=== PATIENT | female | born 1965 | race Caucasian/White ===

== ENCOUNTER → 2022-02-20 | Outpatient (CLI) | payer BC, OTHER | LOC: M PLARAD 10:06 | PROVIDERS: ATTEND Student in an Organized Health Care Education/Training Program | DX: R91.8 Other nonspecific abnormal finding of lung field (principal); K44.9 Diaphragmatic hernia without obstruction or gangrene | CPT/HCPCS: 78815; A9552 ==

== ENCOUNTER 2023-05-30 11:02 | Inpatient (IN) | payer BC, OTHER ==
[~2023-05-30] VITALS: Ht 162.6 cm; Wt 71.2 kg
[2023-05-30] MEDS ORDERED: OMEP40CA4 PO (11:35)
[2023-05-30] MEDS ORDERED: ESTR1TAB PO (11:35)
[2023-05-30] MEDS: NS 1,000 ML IV SCH ×2 (13:45→19:27)
[2023-05-30 13:58] LABS: BASO % 0.3 % (0.0-1.0); EOS % 0.3 % (0.0-3.0); HEMATOCRIT 39.6 % (36.0-47.0); HEMOGLOBIN 13.7 g/dl (12.0-15.5); LYMPH # 1.1 10^3/uL (1.5-5.0); LYMPH % 14.3 % (24.0-44.0); MEAN CORPUSCULAR HEMOGLOBIN 29.7 pg (27.0-33.0); MEAN CORPUSCULAR HGB CONC 34.6 g/dl (32.0-36.5); MEAN CORPUSCULAR VOLUME 85.9 fl (80.0-96.0); MONO # 0.6 10^3/uL (0.0-0.8); NEUTROPHILS # 6.2 10^3/uL (1.5-8.5); NEUTROPHILS % 77.6 % (36.0-66.0); PLATELET COUNT, AUTOMATED 202 10^3/uL (150-450); RED BLOOD COUNT 4.61 10^6/uL (4.00-5.40)
[2023-05-30] MEDS ORDERED: ISOVUE-370 76% 100ML VIAL As Ordered ONE (14:06)
[2023-05-30] MEDS ORDERED: IBUP1TAB7 PO (14:06)
[2023-05-30] MEDS ORDERED: D 101000 PO (14:06)
[2023-05-30] MEDS ORDERED: VITA100C15 PO (14:06)
[2023-05-30] MEDS ORDERED: METH4PACK PO (14:06)
[2023-05-30] MEDS ORDERED: MAGICMW SS (14:06)
[2023-05-30] MEDS ORDERED: TRAZ-252 PO (14:06)
[2023-05-30] MEDS ORDERED: OMEP-173 PO (14:06)
[2023-05-30] MEDS ORDERED: AMOX875T2 PO ×2 (14:06→19:27)
[2023-05-30] MEDS ORDERED: HOME MED LIST COMPLETE! XX SCH (14:10)
[2023-05-30 14:30] LABS: BLOOD UREA NITROGEN 13 MG/DL (9-23); CALCIUM LEVEL 8.5 MG/DL (8.5-10.1); CARBON DIOXIDE LEVEL 27 MMOL/L (20-31); CHLORIDE LEVEL 106 MMOL/L (98-107); CREATININE FOR GFR 0.62 MG/DL (0.55-1.30); GLOMERULAR FILTRATION RATE > 60.0 (>51); GLUCOSE, FASTING 87 MG/DL (60-100); POTASSIUM SERUM 3.7 MMOL/L (3.5-5.1); SODIUM LEVEL 139 MMOL/L (136-145)
[2023-05-30] MEDS: AMPICILLIN SOD/SULBACTAM SOD 3 GM in D5W MINI-BAG PLUS 100 ML IV ONE (15:43)
[2023-05-30] MEDS ORDERED: dexAMETHasone 20MG/5ML VIAL IV ONE (16:00)
[2023-05-30] MEDS ORDERED: KETOROLAC 30 MG/ML 1ML VIAL IV PRN (16:05)
[2023-05-30] MEDS ORDERED: traZODone 50 MG TAB PO PRN (16:05)
[2023-05-30] MEDS ORDERED: OXYMETAZOLINE 0.05% NASAL SPRAY (AFRIN) As Ordered ONE (16:28)
[2023-05-30] MEDS: SCOPOLAMINE 1MG TRANSDERMAL PATCH TOP ONE (16:30)
[2023-05-30] MEDS ORDERED: fentaNYL 100 MCG/2 ML INJECTION As Ordered ONE (16:35)
[2023-05-30] MEDS ORDERED: MIDAZOLAM INJ 2MG/2ML VIAL As Ordered ONE (16:35)
[2023-05-30] MEDS ORDERED: SUCCINYLCHOLINE 100MG/5ML SYRINGE As Ordered ONE (16:35)
[2023-05-30] MEDS ORDERED: propofoL 200 MG/20 ML VIAL As Ordered ONE (16:35)
[2023-05-30] MEDS ORDERED: LIDOCAINE 2% 100MG/5ML SDV (FOR ANES.) As Ordered ONE (16:36)
[2023-05-30] MEDS ORDERED: ONDANSETRON 4MG 2ML VIAL As Ordered ONE (16:36)
[2023-05-30 17:03] LABS: RSV AMPLIFICATION NEGATIVE (NEGATIVE)
[2023-05-30] MEDS: LIDOCAINE W/EPINEPHRINE 1% 20ML VIAL As Ordered ONE (17:28)
[2023-05-30] MEDS: LR 1,000 ML IV SCH (17:45)
[2023-05-30] MEDS ORDERED: fentaNYL 100 MCG/2 ML INJECTION IV PRN (17:45)
[2023-05-30] MEDS ORDERED: NORCO, ANEXSIA 5/325MG TABLET (HYDROcodone/ACETAMINOPHEN) PO PRN (17:45)
[2023-05-30] MEDS ORDERED: ONDANSETRON 4MG 2ML VIAL IV PRN (17:45)
[2023-05-30] MEDS ORDERED: MEPERIDINE 25 MG/ML 1ML VIAL IV PRN (17:45)
[2023-05-30] MEDS ORDERED: HYDROMORPHONE HCL 0.5 MG/ 0.5 ML SYRINGE IV PRN (17:45)
[2023-05-30 18:15] VITALS: BP 138/80; TEMP 98.7; O2SAT 100
[2023-05-30] MEDS: KETOROLAC 30 MG/ML 1ML VIAL IV ONE (18:27)
[2023-05-30] MEDS: NS 1,000 ML IV ONE (18:28)
[2023-05-30 19:38] VITALS: BP 127/70; TEMP 98.3; O2SAT 97
[2023-05-30 20:33] VITALS: BP 124/75; TEMP 98.2; O2SAT 97
[2023-05-30] MEDS: OMEPRAZOLE 20MG CAP PO SCH (21:36)
[2023-05-30] MEDS: AMPICILLIN SOD/SULBACTAM SOD 3 GM in D5W MINI-BAG PLUS 100 ML IV SCH (21:36)
[2023-05-30] MEDS: dexAMETHasone 20MG/5ML VIAL IV SCH (21:52)
[2023-05-30 23:55] VITALS: BP 96/53; TEMP 97.1; O2SAT 96
[2023-05-31 04:05] VITALS: BP 116/69; TEMP 97.8; O2SAT 97
[2023-05-31 05:51] LABS: BASO % 0.2 % (0.0-1.0); HEMATOCRIT 35.5 % (36.0-47.0); HEMOGLOBIN 11.9 g/dl (12.0-15.5); LYMPH # 0.6 10^3/uL (1.5-5.0); LYMPH % 11.6 % (24.0-44.0); MEAN CORPUSCULAR HEMOGLOBIN 29.5 pg (27.0-33.0); MEAN CORPUSCULAR HGB CONC 33.5 g/dl (32.0-36.5); MEAN CORPUSCULAR VOLUME 88.1 fl (80.0-96.0); MONO # 0.2 10^3/uL (0.0-0.8); MONO % 3.7 % (2.0-8.0); NEUTROPHILS # 4.6 10^3/uL (1.5-8.5); NEUTROPHILS % 83.9 % (36.0-66.0); PLATELET COUNT, AUTOMATED 182 10^3/uL (150-450); RED BLOOD COUNT 4.03 10^6/uL (4.00-5.40); WHITE BLOOD COUNT 5.4 10^3/uL (4.0-10.0)
[2023-05-31 06:05] LABS: BLOOD UREA NITROGEN 16 MG/DL (9-23); CALCIUM LEVEL 7.5 MG/DL (8.5-10.1); CARBON DIOXIDE LEVEL 22 MMOL/L (20-31); CHLORIDE LEVEL 112 MMOL/L (98-107); CREATININE FOR GFR 0.53 MG/DL (0.55-1.30); GLOMERULAR FILTRATION RATE > 60.0 (>51); GLUCOSE, FASTING 116 MG/DL (60-100); POTASSIUM SERUM 4.3 MMOL/L (3.5-5.1); SODIUM LEVEL 141 MMOL/L (136-145)
[2023-05-31 08:14] VITALS: BP 124/74; TEMP 97.7; O2SAT 97
[2023-05-31] MEDS: estradioL 1 MG TAB PO SCH (09:00)
== END 2023-05-31 12:38 | disposition home or self-care (01) | DRG 97 ==
LOC: M ED 11:02 → M ED INP 16:00 → ENRESERV 16:31 → M PCU 18:14
PROVIDERS: ADMIT General Practice; ATTEND General Practice
PROC: 0C9P3ZZ Drainage of Tonsils, Percutaneous Approach (ICD-10-PCS; principal; 2023-05-30 16:02)
DX: J36 Peritonsillar abscess (principal); R13.10 Dysphagia, unspecified; K22.70 Barrett's esophagus without dysplasia; K21.9 Gastro-esophageal reflux disease without esophagitis; Z90.79 Acquired absence of other genital organ(s); Z87.891 Personal history of nicotine dependence; Z79.2 Long term (current) use of antibiotics; Z79.890 Hormone replacement therapy; Z79.899 Other long term (current) drug therapy; Z88.5 Allergy status to narcotic agent; Z11.52 Encounter for screening for COVID-19